=== PATIENT | male | born 1975 | race Caucasian/White ===

== ENCOUNTER 2020-03-06 07:00 | Day surgery (SDC) | payer MEDICAID ==
[~2020-03-06 07:00] MED LIST: Dextrose 5%-Lactated Ringers 1,000 ML IV SCH; Glycopyrrolate 0.2 MG/ML 2 ML SDV IVPUSH ONE
[2020-03-06] MEDS ORDERED: fentaNYL 100 MCG/2 ML SDV ONE (07:13)
[2020-03-06] MEDS ORDERED: Propofol 200 MG/20 ML SDV ONE (07:13)
[2020-03-06] MEDS ORDERED: Midazolam 1 MG/ML 2 ML SDV ONE (07:13)
--- NOTE | 2020-03-13 14:10 | OR ---
DATE OF PROCEDURE: 03/06/2020 SURGEON: Jules Gonzalez MD PREOPERATIVE DIAGNOSES: Dysphagia and history of severe gastroesophageal reflux disease. POSTOPERATIVE DIAGNOSES: 1. Dysphagia, likely related to inflammation of hypopharynx and larynx secondary to gastroesophageal reflux disease. 2. Small hiatal hernia with severe distal esophagitis. 3. Retained gastric food and bile consistent with diabetic gastroparesis. 4. Mild antral gastritis. OPERATIVE PROCEDURE: Upper GI endoscopy with: 1. Biopsy of esophagogastric junction for histologic evaluation. 2. Biopsies of antrum for CLOtest. ANESTHESIA: IV sedation. INDICATIONS FOR PROCEDURE: This is a 44-year-old male with progressively worsening type 2 diabetes and associated morbid obesity, presenting with dysphagia. He also has clear-cut history of quite severe gastroesophageal reflux disease despite ongoing medical management. Plan will be to proceed with an upper GI endoscopy with biopsies as indicated. Potential risks including bleeding and perforation were discussed, and the patient wishes to proceed. DETAILS OF PROCEDURE: The patient was taken to the operating room, placed in a left lateral decubitus position. IV sedation was administered, after which the upper GI endoscope was passed orally through the length of the esophagus and into the stomach with retroflexion view of the fundus, and thereafter through the pyloric channel into the junction of 3rd and 4th portions of the duodenum. The patient had some obviously reddened hypopharynx and larynx, suggestive of gastroesophageal reflux disease. Upper esophageal sphincter and esophageal body were unremarkable. As one advanced, however, into the distal esophagus, the patient had roughly 2 to 3 cm hiatal hernia with a wide-open esophagogastric junction and active distal esophagitis with reddened streaks extending somewhat upward into the lower esophagus. There was no stricturing present. Within the stomach, the patient had some retained food and bile despite having been n.p.o. at that point for 8 to 9 hours. This would be consistent with gastroparesis. There was some mild redness in the antrum as well, but without erosions or ulcers. The pyloric channel and visualized portions of the duodenum were unremarkable. At this point, biopsies were taken from esophagogastric junction, sent for histologic evaluation, and biopsies were obtained from the antrum and sent for CLOtest for H pylori. Minimal bleeding from the biopsy sites was seen and the procedure then concluded. At this point, the patient would appear to be needing consideration of an anti-reflux procedure. In this case, a Mishel fundoplication would be contraindicated, due to what is likely significant history of gastroparesis and relatively contraindicated also due to the extent of the obesity. In patients with obesity, there is a high recurrence rate of the hiatal hernia, and with the diabetic gastroparesis, the patient would likely develop quite severe postprandial bloating and discomfort following Mishel fundoplication. Given this, as discussed with the patient and his significant other, we will discuss over the next few days consideration of proximal partial gastrectomy with a Allison-en-Y gastrojejunostomy. This would clear the issue of reflux and would also result in almost immediate improvement and probable remission of his type 2 diabetes. We will see the patient back in the clinic tomorrow to review this. We will have him see Dietary as well at that point. Jules Gonzalez MD /[id number]
== END 2020-03-06 09:50 | disposition home or self-care (01) ==
LOC: JP.SDS 07:00
PROVIDERS: ATTEND Surgery
DX: K29.00 Acute gastritis without bleeding (principal); K21.0 Gastro-esophageal reflux disease with esophagitis; K44.9 Diaphragmatic hernia without obstruction or gangrene; E66.01 Morbid (severe) obesity due to excess calories; T18.2XXA Foreign body in stomach, initial encounter; E11.43 Type 2 diabetes mellitus with diabetic autonomic (poly)neuropathy; K31.84 Gastroparesis; Z88.0 Allergy status to penicillin; Z68.36 Body mass index [BMI] 36.0-36.9, adult
CPT/HCPCS: 87081; 88305; J2250; J2704; J3010; J3490

== ENCOUNTER 2020-03-28 05:49 | Inpatient (IN) | payer MEDICAID ==
[~2020-03-28 05:49] MED LIST changes: +Acetaminophen 500 MG Tab PO ONE; +Celecoxib 200 MG Cap PO ONE; -Dextrose 5%-Lactated Ringers 1,000 ML IV SCH; +Gabapentin 300 MG Cap PO ONE; -Glycopyrrolate 0.2 MG/ML 2 ML SDV IVPUSH ONE; +Scopolamine 1.5 MG Transdermal Patch TOP SCH
[2020-03-28] MEDS ORDERED: Dextrose 5%-Lactated Ringers 1,000 ML IV SCH ×2 (06:00→11:00)
[2020-03-28] MEDS ORDERED: Meropenem 500 MG SDV ONE (06:34)
[2020-03-28] MEDS ORDERED: cefOXitin 2 GM in Sodium Chloride 0.9% 50 ML IV ONE (07:00)
[2020-03-28] MEDS ORDERED: Rocuronium 50 MG/5 ML Vial ONE (07:01)
[2020-03-28] MEDS ORDERED: Glycopyrrolate 0.2 MG/ML 5 ML MDV ONE (07:01)
[2020-03-28] MEDS ORDERED: Propofol 200 MG/20 ML SDV ONE (07:01)
[2020-03-28] MEDS ORDERED: Ondansetron 4 MG/2 ML SDV ONE (07:01)
[2020-03-28] MEDS ORDERED: Dexamethasone 4 MG/ML SDV ONE (07:01)
[2020-03-28] MEDS ORDERED: Neostigmine Methylsulfate 1 MG/ML 5 ML Syringe ONE (07:01)
[2020-03-28] MEDS ORDERED: Succinylcholine 200 MG/10 ML MDV ONE (07:01)
[2020-03-28] MEDS ORDERED: fentaNYL 250 MCG/5 ML SDV ONE ×2 (07:02→07:24)
[2020-03-28] MEDS ORDERED: Ketamine 50 MG in Sodium Chloride 0.9% 49.5 ML IV SCH (07:30)
[2020-03-28] MEDS ORDERED: Magnesium Sulfate 5.3 GM in Sodium Chloride 0.9% 250 ML IV ONE (07:30)
[2020-03-28] MEDS ORDERED: Magnesium Sulfate 3.3 GM in Sodium Chloride 0.9% 100 ML IV SCH (07:30)
[2020-03-28] MEDS ORDERED: Ketamine 500 MG/5 ML MDV IV SCH (07:30)
[2020-03-28] MEDS ORDERED: hydrOXYzine HCL 100 MG/2 ML SDV IM ONE (09:45)
[2020-03-28] MEDS ORDERED: Glucagon,Human Recombinant 1 MG Vial IM PRN (10:52)
[2020-03-28] MEDS ORDERED: HYDROmorphone 1 MG/ML Syringe IV PRN (10:52)
[2020-03-28] MEDS ORDERED: 50% Dextrose in Water 50 ML Syringe IVPUSH PRN (10:52)
[2020-03-28] MEDS ORDERED: hydrOXYzine HCL 100 MG/2 ML SDV IM PRN (10:52)
[2020-03-28] MEDS ORDERED: HYDROmorphone 0.5 MG/0.5 ML Syringe IVPUSH PRN (10:52)
[2020-03-28] MEDS ORDERED: Acetaminophen 500 MG Tab PO PRN (10:52)
[2020-03-28] MEDS ORDERED: Metoclopramide 10 MG/2 ML SDV IVPUSH PRN (10:52)
[2020-03-28] MEDS ORDERED: oxyCODONE 5 MG Tab PO PRN (10:52)
[2020-03-28] MEDS ORDERED: Cyclobenzaprine 10 MG Tab PO PRN (10:52)
[2020-03-28] MEDS ORDERED: Labetalol 20 MG/4 ML Syringe IVPUSH PRN (10:52)
[2020-03-28] MEDS ORDERED: Calcium Gluconate 10% 1 GM/10 ML SDV IVPUSH PRN (10:52)
[2020-03-28] MEDS ORDERED: diphenhydrAMINE 50 MG/ML SDV IVPUSH PRN (10:52)
[2020-03-28] MEDS ORDERED: Ondansetron 4 MG/2 ML SDV IVPUSH PRN (10:52)
[2020-03-28] MEDS ORDERED: Lactated Ringers 1,000 ML IV SCH (11:00)
[2020-03-28] MEDS: cefOXitin 2 GM in Sodium Chloride 0.9% 50 ML IV SCH ×2 (13:13→20:14)
[2020-03-28] MEDS: Gabapentin 250 MG/5 ML Solution ML 470 ML Bottle PO SCH ×2 (13:14→20:15)
[2020-03-28] MEDS: Pantoprazole 40 MG Vial IVPUSH SCH (13:16)
[2020-03-28] MEDS: Acetaminophen 500 MG Tab PO SCH ×2 (13:17→22:02)
[2020-03-28] MEDS: Heparin Sodium 5,000 Units/ML Vial SUBCUT SCH (15:39)
[2020-03-28] MEDS: MVI, Adult with Vitamin K 10 ML, Thiamine 200 MG, Chromium/Copper/Mang/Selen/Zn 1 ML in... IV SCH ×4 (15:40)
[2020-03-28] MEDS: atorvaSTATin 20 MG Tab PO SCH (20:15)
[2020-03-29] MEDS: cefOXitin 2 GM in Sodium Chloride 0.9% 50 ML IV SCH ×3 (03:09→14:06)
[2020-03-29] MEDS: Heparin Sodium 5,000 Units/ML Vial SUBCUT SCH ×2 (03:09→15:20)
[2020-03-29] MEDS ORDERED: Iopamidol 612 MG/ML 50 ML SDV PO STA (03:19)
[2020-03-29] MEDS: Insulin Lispro 100 Unit/ML 3 ML KwikPen SUBCUT PRN ×3 (04:21→16:07)
[2020-03-29] MEDS ORDERED: Ondansetron 4 MG Tab.DIS PO PRN (06:57)
[2020-03-29] MEDS ORDERED: hydrOXYzine HCl 25 MG Tab PO PRN (06:59)
[2020-03-29] MEDS ORDERED: Lactated Ringers 1,000 ML IV SCH (07:00)
[2020-03-29] MEDS: Acetaminophen 500 MG Tab PO SCH ×3 (07:41→21:21)
[2020-03-29] MEDS: Celecoxib 200 MG Cap PO SCH ×2 (08:24→21:22)
[2020-03-29] MEDS: Gabapentin 250 MG/5 ML Solution ML 470 ML Bottle PO SCH ×3 (08:24→21:21)
[2020-03-29] MEDS: SCOPOLAMINE PATCH CHECK TOP SCH (08:25)
--- NOTE | 2020-03-29 10:03 | CR ---
[facility] HISTORY: Postbariatric surgery FINDINGS: Patient swallowed water-soluble contrast. Upright views of the abdomen show no evidence of extravasation or obstruction. There is a surgical drain in the left upper quadrant. IMPRESSION: Status post bariatric surgery No extravasation or obstruction seen
--- NOTE | 2020-03-29 10:32 | PN ---
DATE OF SERVICE: 03/29/2020 SUBJECTIVE: Tristian Martinez states his pain is controlled. Upper GI was normal. Blood sugars since surgery were 176, 201, 201, and 204. GINO drain put out 190 mL of a light pink drainage. Oral intake 2790, output 1450. He has been up ambulating, has no concerns or questions. OBJECTIVE: GENERAL: Tristian Vazquez is a 44-year-old male. He is alert and orientated. VITAL SIGNS: TPR 98.6, 90, 16, blood pressure 132/76. HEENT: Negative. NECK: Supple. HEART: Regular rate and rhythm. LUNGS: Clear. ABDOMEN: Dressings dry and intact. Abdominal binder is on. GINO drain intact as above. EXTREMITIES: Without peripheral edema. ASSESSMENT: Diagnostic laparoscopy with: 1. Partial gastrectomy with Allison-en-Y gastrojejunostomy. 2. Liver biopsy. 3. Small bowel resection. 4. Repair of diaphragmatic hernia. 5. Excision of mediastinal lipoma. POSTOPERATIVE DIAGNOSES: Severe gastroesophageal reflux disease refractory to medical management with concurrent diabetes, gastroparesis, small bowel mesentery severe fat laden requiring small bowel resection, severe esophageal diaphragmatic hernia, mediastinal lipoma, and marked hepatomegaly. Date of surgery 03/28/2020. Surgeon: Jules Gonzalez MD. PLAN: 1. Dressing off, march shower. 2. Step 2 gastric bypass diet with no cereal. 3. Atarax 25 mg p.o. q.4 hours p.r.n. pain. 4. Discontinue D5LR. 5. Lactated Ringer's IV to run at 60 mL/h. 6. Zofran ODT 4 mg q.4 hours p.r.n. nausea. 7. Good pulmonary toilet. 8. Ambulate at least 6 times daily. 9. Communication order for 3 med cups to drink 1 every 20 minute or 3 per hour. 10.We will evaluate p.r.n. or in a.m. Paty Weinstein PA-C /[id number]
[2020-03-29] MEDS: Pantoprazole 40 MG Vial IVPUSH SCH (14:06)
[2020-03-29] MEDS: MVI, Adult with Vitamin K 10 ML, Thiamine 200 MG, Chromium/Copper/Mang/Selen/Zn 1 ML in... IV SCH ×4 (16:07)
--- NOTE | 2020-03-29 16:51 | OR ---
DATE OF PROCEDURE: 03/28/2020 SURGEON: Jules Gonzalez MD PREOPERATIVE DIAGNOSES: Severe gastroesophageal reflux disease refractory to medical management and concurrent diabetic gastroparesis. POSTOPERATIVE DIAGNOSES: 1. Severe gastroesophageal reflux disease refractory to medical management and concurrent diabetic gastroparesis. 2. Small bowel mesentery severely fat-laden requiring small bowel resection to provide adequate mobility of the jejunojejunostomy. 3. Paraesophageal diaphragmatic hernia. 4. Mediastinal lipoma. 5. Marked hepatomegaly with gross fatty infiltration of liver. OPERATIVE PROCEDURES: Diagnostic laparoscopy with, 1. Partial gastrectomy with Allison-en-Y gastrojejunostomy (38712). 2. Cameron-Cut needle liver biopsy (41650). 3. Small bowel resection (55852). 4. Repair of paraesophageal diaphragmatic hernia (66396). 5. Excision of mediastinal lipoma (21456). ANESTHESIA: General. COOKIE MIXER HELPER: Paty Weinstein PA-C INDICATIONS FOR PROCEDURE: This is a 44-year-old male with longstanding diabetes and progressively worsening complications. He recently has had worsening problems of gastroesophageal reflux disease which has been refractory to medical management. Concurrently, on upper endoscopy, he was noted to have retained food within the stomach consistent with diabetic gastroparesis. This would make a fundoplication-type procedure contraindicated with resultant severe gas bloating and potentially a closed-loop type obstruction. Given this, the plan is to proceed with a partial gastrectomy with Allison-en-Y gastrojejunostomy which will alleviate the reflux as well as avoid getting to use the stomach to empty. Potential risks of procedure including bleeding, infection, leaks from various GI tract closures, problems with bowel obstruction over time as well as possibility of cardiopulmonary, septic, or hemorrhagic complications leading to were discussed, and the patient wishes to proceed. DETAILS OF PROCEDURE: The patient was taken to the operating room and placed in a supine position. After general endotracheal anesthesia was induced, the patient was converted to a lithotomy position and the abdomen prepped and draped. 15 cm inferior and 5 cm left of the xiphoid process, a transverse incision was made and peritoneal cavity entered under direct vision with an Optiview trocar, inflated to 15 mmHg pressure with CO2. Laparoscope was reinserted and no underlying trocar insertion site injuries were seen. Following this, bilateral transversus abdominis plane blocks were placed and 5 additional trocars were placed across the upper and mid abdomen. The patient was noted to have markedly fat-laden liver related to obesity and diabetes. Cameron-Cut needle biopsy was obtained from the left lobe of liver. Minimal bleeding from the biopsy site was controlled with electrocautery. At this point, the omentum was divided in the midline up to the level of the transverse colon. This allowed identification of the small bowel to ligament of Treitz. Small bowel was then traced out 225 cm where it was divided with a CRISTIN stapler. The small bowel mesentery at that level was noted to be strikingly fat laden and poorly mobile. Given this, roughly 10 cm of the biliopancreatic limb side of small bowel was resected to provide more adequate mobility of the jejunojejunostomy and allowing a relatively tension-free gastrojejunostomy later in the procedure. After that, bowel was resected with a CRISTIN stapler and underlying mesentery divided with Harmonic scalpel. This bowel was then traced out additional 150 cm, where the [id number] enteroenterostomy was accomplished with internal firing of the Endo-CRISTIN 60 mm stapler. Common opening was then closed transversely with the CRISTIN stapler. The angles of anastomosis and mesenteric defect were then approximated with some 0 Ethibond stitch as well as reinforced with fibrin sealant. The Allison limb was then brought up through an antecolic approach and did come up in the area of the gastroesophageal junction with little in the way of tension. The liver was then retracted anteriorly. The patient was noted to have moderate-sized paraesophageal diaphragmatic hernia. This contained some perigastric fat as well as fundus of the stomach and a tongue of omentum in a plane anterior to the course of the diaphragm. This was reflected downward and peritoneum overlying incised. During the course of the dissection of the hiatus, mediastinal lipoma was encountered and to facilitate a more adequate repair of the crura, this was excised. The crural repair was then accomplished with 0 Ethibond sutures reinforced with PTFE pledgets. The anvil of a 25-mm EEA stapler was then attached to [place] sump type tube. The latter was brought down through the mouth and taken out through a small opening in the gastric pouch. Divided end of the Allison limb was then opened and main body of EEA stapler passed several centimeters into the lumen of small bowel, brought up the anvil and united with it, thus creating the gastrojejunostomy. Upon removal of the stapler, double donuts of mucosa were noted within it. Small bowel was closed off with a vascular staple line. Gastrojejunostomy was reinforced with some 3-0 Vicryl seromuscular stitch along with fibrin sealant. A leak test was accomplished with injection of 120 mL of air in the gastric pouch while it was submerged with cefoxitin-containing saline solution. No leaks were identified. A single Julio C-Khan drain was taken out through the left lateral trocar site and positioned adjacent to the gastrojejunostomy. At that point, the trocars were removed and the peritoneal cavity deflated. Incisions were closed with some 4-0 Vicryl skin stitch, which was also used to fix the drain. The patient was taken to the recovery room in satisfactory condition. Physician assistant therapy aide, Paty Weinstein, played an essential role in assisting in this case, helping to position the patient, retract structures as needed, as well as suturing and cutting sutures when indicated. Her presence improved patient safety and decreased the operative time. Jules Gonzalez MD /[id number]
[2020-03-29] MEDS: atorvaSTATin 20 MG Tab PO SCH (21:22)
[2020-03-30] MEDS: Heparin Sodium 5,000 Units/ML Vial SUBCUT SCH (04:16)
[2020-03-30] MEDS: Acetaminophen 500 MG Tab PO SCH (05:58)
[2020-03-30] MEDS: Gabapentin 250 MG/5 ML Solution ML 470 ML Bottle PO SCH (08:09)
[2020-03-30] MEDS: Celecoxib 200 MG Cap PO SCH (08:10)
[2020-03-30] MEDS: SCOPOLAMINE PATCH CHECK TOP SCH (08:23)
[2020-03-30] MEDS ORDERED: Cyanocobalamin (Vitamin B12) 1,000 MCG/ML SDV IM ONE (09:00)
--- NOTE | 2020-03-30 13:18 | DISCH ---
ADMISSION DIAGNOSES: 1. Type 2 diabetes mellitus. 2. Obesity. 3. BMI 37.6. 4. Gastroesophageal reflux disease. 5. Diabetic polyneuropathy. DISCHARGE DIAGNOSES: Diagnostic laparoscopy with: 1. Partial gastrectomy with Allison-en-Y gastrojejunostomy. 2. Cameron-Cut needle liver biopsy. 3. Small bowel resection. 4. Repair of paraesophageal diaphragmatic hernia. 5. Excision of mediastinal lipoma. POSTOPERATIVE DIAGNOSES: 1. Severe gastroesophageal reflux disease refractory to medical management and concurrent diabetic gastroparesis. 2. Small bowel mesenteric severely fat laden requiring small bowel resection to provide adequate mobility of the jejunojejunostomy. 3. Paraesophageal diaphragmatic hernia. 4. Mediastinal lipoma. 5. Marked hepatomegaly for gross fatty infiltration of liver. HISTORY: Tristian Vazquez is a 44-year-old male with longstanding diabetes and progressively worsening complications. He recently has had worsening problems of gastroesophageal reflux disease, which has been refractory to medical management. After preoperative evaluation and discussion of possible risks and possible complications, he wished to proceed with surgical procedure. HOSPITAL COURSE: Surgery was on 03/28/2020. No operative complications. On postoperative day 1, IV was decreased and changed to lactated Ringer's. He was started on step 2 gastric bypass diet with no cereal. On postoperative day 2, he received adequate dietary instruction, a B12 1000 mcg IM injection. Oral intake adequate. Had a bowel movement. Pain was controlled with energy protocol. He was up ambulating and able to be discharged to home. Last blood sugar was 182. PHYSICAL EXAMINATION: GENERAL: Tristian Martinez is a pleasant 44-year-old male. VITAL SIGNS: Height is 5 feet 8 inches. Weight is 247 pounds, BMI 37.6. TPR at 0300; 97.3, 90, 16. Blood pressure 128/78. HEENT: Negative. NECK: Supple. HEART: Regular rate and rhythm. LUNGS: Clear. ABDOMEN: Incisions look good. Healing well. Sutures intact. Abdominal binder has been on. EXTREMITIES: Without peripheral edema. DISPOSITION: Discharged to home. CONDITION: Stable and improving. FOLLOWUP APPOINTMENT: Paty Weinstein PA-C, on 04/06/2020 at 9:00 a.m. required appointment in clinic. NEW PRESCRIPTIONS: 1. Tylenol 1000 mg oral every 8 hours p.r.n. pain. 2. Zofran ODT 4 mg q.4 hours p.r.n. nausea, #30. He has Celebrex 200 mg oral twice daily for 2 weeks at home and he is to continue Lipitor 20 mg at bedtime. Discontinue taking Jardiance, Victoza, multivitamin, omeprazole, vitamin B complex, Lopid, and metformin. DIET: Step 2 gastric bypass diet with no cereal until 04/11/2020. ACTIVITY AFTER DISCHARGE: No lifting over 10 pounds for 2 weeks. Other activity: Walk at least 6 times daily inside your house. Driving after discharge: Do not drive for 1 week. Shower/bathing: May shower. DISCHARGE INSTRUCTIONS: Notify provider if any fever, increased pain, nausea, or vomiting. Keep site clean and dry. Wear abdominal binder for 2 weeks and then as tolerated. SPECIAL INSTRUCTION: Use incentive spirometer 10 times every hour while awake for 1 week. Check blood sugars 3 to 4 times a day, but one time should be in the morning when you first get up and before bed. Call clinic on Friday with results of blood sugars.
== END 2020-03-30 15:15 | disposition home or self-care (01) | DRG 328 ==
LOC: JP.SDSSCHI 05:49 → JP.SDS 05:49 → EDSTATUS 07:15 → JP.MS 09:20
PROVIDERS: ADMIT Surgery; ATTEND Surgery
PROC: 0D164ZA Bypass Stomach to Jejunum, Percutaneous Endoscopic Approach (ICD-10-PCS; principal; 2020-03-28)
PROC: 0FB24ZX Excision of Left Lobe Liver, Percutaneous Endoscopic Approach, Diagnostic (ICD-10-PCS; 2020-03-28)
PROC: 0BQT4ZZ Repair Diaphragm, Percutaneous Endoscopic Approach (ICD-10-PCS; 2020-03-28)
PROC: 0DB84ZZ Excision of Small Intestine, Percutaneous Endoscopic Approach (ICD-10-PCS; 2020-03-28)
PROC: 0JB63ZZ Excision of Chest Subcutaneous Tissue and Fascia, Percutaneous Approach (ICD-10-PCS; 2020-03-28)
PROC: 0DB64ZZ Excision of Stomach, Percutaneous Endoscopic Approach (ICD-10-PCS; 2020-03-28)
DX: K21.9 Gastro-esophageal reflux disease without esophagitis (principal); E11.43 Type 2 diabetes mellitus with diabetic autonomic (poly)neuropathy; K31.84 Gastroparesis; E66.9 Obesity, unspecified; E11.42 Type 2 diabetes mellitus with diabetic polyneuropathy; D17.1 Benign lipomatous neoplasm of skin and subcutaneous tissue of trunk; K76.0 Fatty (change of) liver, not elsewhere classified; E11.65 Type 2 diabetes mellitus with hyperglycemia; K44.9 Diaphragmatic hernia without obstruction or gangrene; Z68.35 Body mass index [BMI] 35.0-35.9, adult; Z79.4 Long term (current) use of insulin; Z79.899 Other long term (current) drug therapy
CPT/HCPCS: 36415; 74240; 74240-26; 80053; 82962; 83735; 83880; 84100; 85025; 86850; 86900; 86901; 93005; 94762; A9270-GY; C9113; J0171; J0330; J0694; J1100; J1644; J1815; J1815-GY; J2185; J2405; J2704; J2710; J2795; J3010; J3410; J3411; J3420; J3475; J3490; J7050; J7120; J7121; Q9967